=== PATIENT | female | born 1980 | race Caucasian/White ===

== ENCOUNTER 2020-09-18 18:23 | Emergency (ER) | payer SELFPAY ==
[~2020-09-18] VITALS: Ht 175.3 cm; Wt 122.0 kg
[2020-09-18 19:33] LABS: BASO # 0.02 (0.02-0.10); EOS # 0.01 (0.04-0.40); EOS % 0.2 % (1.0-5.0); LYMPH# 1.55 (1.50-4.00); MEAN CELL VOLUME 58 fl (78-100); MEAN CORPUSCULAR HEMOGLOBIN 16 pg (27-31); MEAN CORPUSCULAR HGB CONC 28 g/dL (33-37); MEAN PLATELET VOLUME 8.6 fl (7.4-10.4); MONO # 0.39 (0.20-0.80); NEU # 2.36 (1.40-6.50); PLATELET COUNT 225 K/mm3 (130-400); RED BLOOD COUNT 3.77 M/mm3 (4.10-5.30); RED CELL DISTRIBUTION WIDTH 18.5 % (11.5-14.5); WHITE BLOOD COUNT 4.3 K/mm3 (4.8-10.8)
[2020-09-18 19:35] LABS: HEMOGLOBIN 6.1 g/dL (12.5-16.0)
[2020-09-18 19:43] LABS: ALBUMIN 3.6 g/dL (3.5-5.0); POTASSIUM 3.4 mmol/L (3.5-5.1)
[2020-09-18 19:44] LABS: CALCIUM 8.3 mg/dL (8.3-10.5)
[2020-09-18 19:46] LABS: TOTAL PROTEIN 6.7 g/dL (6.4-8.3)
[2020-09-18 19:48] LABS: TOTAL BILIRUBIN 0.3 mg/dL (0.2-1.2)
[2020-09-18 20:15] LABS: D-DIMER 0.78 mg/L FEU (0.15-0.50)
[2020-09-18 22:07] VITALS: BP 130/69
== END 2020-09-18 22:07 | disposition short-term general hospital (02) ==
LOC: ED 18:23
PROVIDERS: Family Medicine
DX: U07.1 COVID-19 (principal); D64.9 Anemia, unspecified
CPT/HCPCS: J1100; J3490

== ENCOUNTER → 2020-09-27 | Outpatient (CLI) | payer SELFPAY ==
[2020-09-27 13:20] LABS: PH-URINE 5.5 (5.0 - 8.0); URINE APPEARANCE CLOUDY; URINE COLOR ORANGE; URINE GLUCOSE NEGATIVE (NEGATIVE); URINE KETONE 1+ (NEGATIVE); URINE PROTEIN(semi-quant) TRACE mg/dL (NEGATIVE)
[2020-09-27 13:21] LABS: URINE BILIRUBIN 1+ (NEGATIVE); URINE BLOOD 250 ery/uL (NEGATIVE); URINE LEUKOCYTE ESTERASE TRACE (NEGATIVE); URINE MUCUS PRESENT (NOT PRESENT); URINE NITRATE NEGATIVE (NEGATIVE); URINE UROBILINOGEN 1 mg/dL (NORMAL)
[2020-09-27 13:26] LABS: BASO # 0.06 (0.02-0.10); EOS % 2.2 % (1.0-5.0); HEMATOCRIT 33.2 % (37.0-47.0); HEMOGLOBIN 9.3 g/dL (12.5-16.0); LYMPH# 2.15 (1.50-4.00); MEAN CELL VOLUME 65 fl (78-100); MEAN CORPUSCULAR HEMOGLOBIN 18 pg (27-31); MEAN CORPUSCULAR HGB CONC 28 g/dL (33-37); MEAN PLATELET VOLUME 9.5 fl (7.4-10.4); PLATELET COUNT 496 K/mm3 (130-400); RED BLOOD COUNT 5.13 M/mm3 (4.10-5.30); RED CELL DISTRIBUTION WIDTH 26.3 % (11.5-14.5); WHITE BLOOD COUNT 13.9 K/mm3 (4.8-10.8)
[2020-09-27 13:54] LABS: ALBUMIN 3.6 g/dL (3.5-5.0); POTASSIUM 3.5 mmol/L (3.5-5.1)
[2020-09-27 13:58] LABS: TOTAL BILIRUBIN 0.5 mg/dL (0.2-1.2)
== END ==
LOC: LAB 13:15
PROVIDERS: Family Medicine
DX: Z86.16 Personal history of COVID-19 (principal)

== ENCOUNTER 2021-10-13 08:41 | Emergency (ER) | payer BC ==
[2021-10-13 09:27] LABS: BASO # 0.04 K/mm3 (0.02-0.10); EOS # 0.35 K/mm3 (0.04-0.40); EOS % 3.5 % (1.0-5.0); HEMOGLOBIN 8.8 g/dL (12.5-16.0); LYMPH# 1.16 K/mm3 (1.50-4.00); MEAN CELL VOLUME 63 fl (78-100); MEAN CORPUSCULAR HEMOGLOBIN 18 pg (27-31); MEAN CORPUSCULAR HGB CONC 28 g/dL (33-37); MEAN PLATELET VOLUME 9.4 fl (7.4-10.4); MONO # 0.75 K/mm3 (0.20-0.80); NEU # 7.71 K/mm3 (1.40-6.50); PLATELET COUNT 389 K/mm3 (130-400); RED BLOOD COUNT 4.92 M/mm3 (4.10-5.30); RED CELL DISTRIBUTION WIDTH 17.9 % (11.5-14.5)
[2021-10-13 09:28] LABS: ALBUMIN 3.8 g/dL (3.5-5.0); POTASSIUM 3.9 mmol/L (3.5-5.1)
[2021-10-13 09:29] LABS: CALCIUM 8.8 mg/dL (8.3-10.5)
[2021-10-13 09:30] LABS: PROTHROMBIN TIME 10.1 SECONDS (9.0-12.0)
[2021-10-13 09:31] LABS: TOTAL PROTEIN 7.1 g/dL (6.4-8.3)
[2021-10-13 09:32] LABS: TOTAL BILIRUBIN 0.2 mg/dL (0.2-1.2)
[2021-10-13] MEDS ORDERED: ZOFRAN ODT4 MG PO (11:12)
[2021-10-13 11:24] LABS: URINE APPEARANCE CLOUDY; URINE BILIRUBIN NEGATIVE (NEGATIVE); URINE COLOR RED; URINE GLUCOSE NEGATIVE (NEGATIVE); URINE KETONE NEGATIVE (NEGATIVE); URINE LEUKOCYTE ESTERASE NEGATIVE (NEGATIVE); URINE NITRATE NEGATIVE (NEGATIVE); URINE PROTEIN(semi-quant) 2+ (NEGATIVE); URINE UROBILINOGEN NORMAL (NORMAL)
[2021-10-13 11:25] LABS: URINE BLOOD 250 ery/uL (NEGATIVE)
[2021-10-13 11:57] VITALS: BP 119/86
== END 2021-10-13 11:20 | disposition home or self-care (01) ==
LOC: ED 08:41 → LAB 08:41 → EDSTATUS 08:45 → ED 11:20
PROVIDERS: Physician Assistant
DX: U07.1 COVID-19 (principal); D64.9 Anemia, unspecified; N93.9 Abnormal uterine and vaginal bleeding, unspecified; Z28.310 Unvaccinated for COVID-19
CPT/HCPCS: J7030